=== PATIENT | female | born 1950 | race Caucasian/White ===

== ENCOUNTER 2024-06-19 06:40 | Day surgery (SDC) | payer MEDICARE, SELFPAY ==
[2024-06-16 13:25] VITALS: BMI 41.8
--- NOTE | 2024-06-18 13:23 | EKG_ITS ---
[facility] Test Date: 2024-06-18 Pat Name: EDIS WILDER Department: Room: - Gender: Female [employer]: MERARY : 1950 Requested By: Narayan Mike Order Number: [id number] Reading MD: Narayan Mike Measurements Intervals [place] Rate: 105 P: 5 MD: 163 QRS: 1 QRSD: 97 T: 26 QT: 328 QTc: 435 Interpretive Statements SINUS TACHYCARDIA LOW QRS VOLTAGE IN PRECORDIAL LEADS ABNORMAL RHYTHM ECG Compared to ECG 05/10/2022 11:34:42 Sinus rhythm no longer present Myocardial infarct finding no longer present /store/[id number]
[2024-06-18 15:37] LABS: Basophils # (Auto) 0.1 Thou/mm3 (0.0-0.2); Basophils % (Auto) 1 % (0-2.5); Eosinophils # (Auto) 0.4 Thou/mm3 (0.0-0.5); Eosinophils % (Auto) 3 % (0-10); Hematocrit 43.4 % (36.0-46.0); Immature Granulocytes % (Auto) 0 % (0-0); Immature Granulocytes Auto 0.04 Thou/mm3 (0.00-0.00); Lymphocytes # (Auto) 3.2 Thou/mm3 (1.0-4.8); Lymphocytes % (Auto) 29 % (10-50); Mean Corpuscular HGB Conc 34.6 g/dl (31.0-37.0); Mean Corpuscular Hemoglobin 29.5 pg (25.0-35.0); Mean Corpuscular Volume 85 fL (80-100); Monocytes # (Auto) 0.7 Thou/mm3 (0.0-0.8); Monocytes % (Auto) 6 % (0-12); Neutrophils # (Auto) 6.8 Thou/mm3 (1.8-7.7); Neutrophils % (Auto) 60 % (37-80); Nucleated Red Blood Cell % 0 /100 WBC (0); Platelet Count 274 Thou/mm3 (140-440); RDW Standard Deviation 41.5 fL (36.4-46.3); Red Blood Count 5.09 Miln/mm3 (4.00-5.20); White Blood Count 11.2 Thou/mm3 (3.6-11.0)
[2024-06-19] VITALS (7 sets, daily range): BP systolic 97–135; BP diastolic 57–74; PULSE 70–82; RESP 13–22; TEMP 36.4–36.7; O2SAT 96–97; BMI 41.9
--- NOTE | 2024-06-19 08:12 | SUR.PHASEII ---
0802 patient is sleepy and arousable, breathing unlabored, s/p EGD under MAC anesthesia, report received from Carmella FRANCO and Dr. Allen anesthesia provider.
--- NOTE | 2024-06-19 08:59 | SUR.PHASEII ---
0855 patient is awake, alert, breathing unlabored, able to drink water with no nausea or vomiting, meets discharge criteria, discharge instructions given to patient and , patient discharged home in wheelchair with all belongings.
[2024-06-19 09:27] LABS: Misc Send Out* See Sep Rpt
== END 2024-06-19 08:55 | disposition home or self-care (01) ==
PROVIDERS: Anesthesiology; PCP Internal Medicine; Referring Provider Internal Medicine Gastroenterology; Visit Provider Internal Medicine Gastroenterology
PROC: (CPT 43239; principal; 2024-06-19 07:30)
DX: K29.70 Gastritis, unspecified, without bleeding (principal); K31.7 Polyp of stomach and duodenum; K44.9 Diaphragmatic hernia without obstruction or gangrene
CPT/HCPCS: 43251; 43239; 36415; 85025; 87081; 87205; 93005; A4649

== ENCOUNTER → 2024-06-24 | Outpatient (CLI) | payer MEDICARE, SELFPAY ==
--- NOTE | 2024-06-24 14:10 | XR_ITS ---
Examination: Bone densitometry Date and time of exam:June 24, 2024 1436 hours INDICATIONS: Menopause age 50, personal history osteoporosis, family history mother hip fracture, personal history left femur fracture 7 years ago Technique: Lumbar spine and hip total bone mineralization values of an calculated. Peak reference and age match control results have been displayed. Findings: Lumbar spine total bone mineralization is0.992 gm/cm2. This is 0.5 standard deviations below peak reference. This is 1.8 standard deviations above age-matched controls. Hip total bone mineralization is 0.659 gm/cm2 This is 2.3 standard deviations below peak reference. This is 0.6 standard deviations below age-matched controls Impression: There is normal mineralization based on lumbar spine measurements. There is osteoporosis based on hip measurements Lumbar mineralization is decreased 1.3% compared with October 11, 2021 Hip mineralization is decreased 4.8% compared with October 11, 2021
== END | disposition home or self-care (01) ==
LOC: CDIM 14:18
PROVIDERS: PCP Internal Medicine; Referring Provider Nurse Practitioner Family; Visit Provider Nurse Practitioner Family
DX: M81.0 Age-related osteoporosis without current pathological fracture (principal)
CPT/HCPCS: 77080

== ENCOUNTER → 2024-08-12 | Outpatient (CLI) | payer MEDICARE, SELFPAY ==
--- NOTE | 2024-08-12 09:30 | XR_ITS ---
Examination: CT abdomen with intravenous contrast CT pelvis with intravenous contrast 2-D coronal reconstructions 2-D sagittal reconstructions Date and time of exam:August 12, 2024 at 0945 hours INDICATIONS: Epigastric pain and recurrent urinary tract infections beginning 2 years ago. CTDI: vol (mGy) 45.3 DLP: (mGycm) 1136 Technique: Multiple axial sections of the abdomen and pelvis have been obtained. 64 slice high-resolution scanner used. 3 mm axial sections have been obtained, post intravenous injection 60 cc [id number] 2-D sagittal, coronal reconstructions obtained. Low dose protocols were performed. One or more of the following dose reduction techniques were used; automated exposure control, adjustment of the mA and/or KV according to patient size, use of iterative reconstruction technique. Findings: Suspicious for septal edema at the lung bases Hepatomegaly 23 cm No focal liver or splenic lesions Gallbladder wall does not appear thickened axial image 91 No pancreatic or adrenal mass No renal or ureteral calculi, no hydronephrosis Normal appendix No bowel obstruction No diverticulitis Atrophic uterus No adnexal mass Very abnormal urinary bladder with irregular wall thickening measuring up to 13 mm Severe osteopenia with chronic osteoporotic compression L3, advanced degenerative disc disease L5-S1 IMPRESSION: Suspicious for septal edema at the lung bases, recommend PA lateral chest follow-up Hepatomegaly, 23 cm fatty infiltration Abnormal thickening of the gallbladder wall, recommend hepatobiliary sonography follow-up Very abnormal urinary bladder wall with irregular margins wall thickening measuring up to 13 mm, differential would include severe cystitis, early bladder carcinoma not excluded, recommend urinary bladder sonography follow-up
== END | disposition home or self-care (01) ==
LOC: CCTX 09:17
PROVIDERS: PCP Internal Medicine; Referring Provider Internal Medicine Gastroenterology; Visit Provider Internal Medicine Gastroenterology
DX: K76.0 Fatty (change of) liver, not elsewhere classified (principal); K82.8 Other specified diseases of gallbladder; N32.89 Other specified disorders of bladder
CPT/HCPCS: 74177; A4649; Q9967

== ENCOUNTER → 2024-08-26 | Outpatient (CLI) | payer MEDICARE, SELFPAY ==
--- NOTE | 2024-08-26 12:08 | XR_ITS ---
Examination: Urinary bladder sonography complete TECHNIQUE: Grayscale sonographic images urinary bladder Exam date and time: August 26, 2024 12:16 PM INDICATIONS: Irregular urinary bladder wall thickening up to [address] pelvis August 12, 2024, patient states constant urination 2 years FINDINGS: Mildly thickened bladder wall at this time 0.4 cm Bladder prevoid volume 40 cc postvoid 18 cc No discrete bladder mass or bladder calculi IMPRESSION: Mild current thickening of urinary bladder wall
== END | disposition home or self-care (01) ==
LOC: CDIM 11:58
PROVIDERS: PCP Internal Medicine; Referring Provider Internal Medicine; Visit Provider Internal Medicine
DX: N32.89 Other specified disorders of bladder (principal)
CPT/HCPCS: 76857

== ENCOUNTER → 2024-08-29 | Outpatient (CLI) | payer MEDICARE, SELFPAY ==
--- NOTE | 2024-08-29 | XR_ITS ---
Examination: PA lateral chest 2 views TECHNIQUE: Upright PA lateral chest 2 views Exam date and time: August 29, 2024 1400 hours Comparison January 18, 2018 INDICATIONS: Difficulty breathing beginning 2 weeks ago. FINDINGS: Mild heart failure Mild enlargement cardiac contour Prominent vascular congestion with early septal edema at the lung bases Prominent osteopenia IMPRESSION: Early heart failure
== END | disposition home or self-care (01) ==
PROVIDERS: PCP Internal Medicine; Referring Provider Internal Medicine; Visit Provider Internal Medicine
DX: I50.9 Heart failure, unspecified (principal)
CPT/HCPCS: 71046

== ENCOUNTER → 2024-09-04 | Outpatient (CLI) | payer MEDICARE, SELFPAY ==
--- NOTE | 2024-09-04 12:00 | XR_ITS ---
Examination: Abdomen sonogram, Limited Date and time of exam: September 04, 2024 1222 hours INDICATIONS: Right upper abdominal pain beginning 20 years ago Technique: Real-time coto scale transabdominal sonographic images of the upper abdomen obtained. Findings: Multiple gallstones Gallbladder wall 0.5 cm no edema Common bile duct 1.1 cm Pancreatic head 3.2 cm Liver 17.3 cm fatty infiltration Normal hepatopedal portal venous flow Patent IVC IMPRESSION: Cholelithiasis Thickened gallbladder wall Abnormally enlarged common bile duct, consider MRCP follow-up
== END | disposition home or self-care (01) ==
LOC: CDIM 12:06
PROVIDERS: PCP Internal Medicine; Referring Provider Internal Medicine Gastroenterology; Visit Provider Internal Medicine Gastroenterology
DX: K80.20 Calculus of gallbladder without cholecystitis without obstruction (principal); K82.8 Other specified diseases of gallbladder; K83.8 Other specified diseases of biliary tract
CPT/HCPCS: 76705

== ENCOUNTER → 2024-12-04 | Outpatient (CLI) | payer MEDICARE, SELFPAY ==
--- NOTE | 2024-12-04 12:30 | XR_ITS ---
Examination: HIDA, hepatobiliary radioisotope scan Gallbladder ejection fraction study. Date and time of exam: December 04, 2024 1205 hours INDICATIONS: Abnormal liver function tests, heartburn 4 months Technique: 6.0 mCi of 99M Hepatolite administered. Serial imaging then obtained from immediate through 60 minutes. 2.2 mcg selective catheter Kinevac administered for gallbladder ejection fraction study. Findings: Radioisotope activity within the liver is reasonably homogenous. Gallbladder, common bile duct small bowel activity noted Impression: Gallbladder activity Abnormal gallbladder ejection fraction, 27%, normal greater than 35%
== END | disposition home or self-care (01) ==
LOC: SNUC 12:14
PROVIDERS: PCP Internal Medicine; Referring Provider Internal Medicine Gastroenterology; Visit Provider Internal Medicine Gastroenterology
DX: R94.8 Abnormal results of function studies of other organs and systems (principal)
CPT/HCPCS: 78226; A9537; J2805

== ENCOUNTER → 2024-12-11 | Outpatient (CLI) | payer MEDICARE, SELFPAY ==
--- NOTE | 2024-12-11 12:00 | XR_ITS ---
MRI abdomen, without contrast. MRCP Date and time of exam: December 11, 2024 1214 hours INDICATIONS: Abdominal pain 15 years worse the last 5 months with gallstones and thickened gallbladder wall on hepatobiliary sonography September 04, 2024 Technique: Multiple axial and coronal images of the abdomen have been obtained with the Siemens 1.5T MRI scanner. Images obtained included T1 weighted transverse images, T2-weighted transverse images, T2-weighted transverse images fat-suppressed, T2 weighted haste fat suppressed transverse images, T1 weighted images, in and out of phase images, T2-weighted coronal images, breath hold, T2 weighted haze coronal images as well as T2 weighted coronal thick slab images, MRCP. Findings: Hepatomegaly 22 cm Intrahepatic biliary tract dilatation Multiple gallstones, gallbladder wall is not thickened Enlarged common hepatic duct 12 mm 4 mm 6 mm distal common bile duct stones with probable impacted stone in the distal most common bile duct at least 6 mm No pancreatic mass Splenomegaly 14 cm No ascites No hydronephrosis IMPRESSION: Cholelithiasis, negative for cholecystitis Multiple common bile duct stones with extrahepatic biliary tract dilatation, likely impacted stone in the distal common bile duct
== END | disposition home or self-care (01) ==
LOC: SMRI 11:46
PROVIDERS: PCP Internal Medicine; Referring Provider Internal Medicine Gastroenterology; Visit Provider Internal Medicine Gastroenterology
DX: K80.20 Calculus of gallbladder without cholecystitis without obstruction (principal); K80.50 Calculus of bile duct without cholangitis or cholecystitis without obstruction; K83.8 Other specified diseases of biliary tract
CPT/HCPCS: S8037; 74181

== ENCOUNTER → 2025-04-08 | Outpatient (CLI) | payer MEDICARE, SELFPAY ==
--- NOTE | 2025-04-08 09:00 | XR_ITS ---
Examination: Screening digital mammography, bilateral Computer aided detection 3-D breast Tomosynthesis, bilateral Date and time of exam: April 08, 2025 1014 hours, compared to mammograms dating to October 11, 2021 Indication: Screening Technique: Nonmagnified MLO, CC views of the breasts to been obtained, reconstructed from 3-D Tomosynthesis images. R2 computer aided detection program utilized for evaluation of suspicious masses and/or abnormal calcifications. 3-D Tomosynthesis images obtained. Findings: Scattered areas of fibroglandular density. Benign calcifications. No interval suspicious masses Impression: BI-RADS category II: Benign Findings. Recommend 1 year follow-up mammogram.
== END | disposition home or self-care (01) ==
LOC: CDIM 10:01
PROVIDERS: Referring Provider Student in an Organized Health Care Education/Training Program; Visit Provider Student in an Organized Health Care Education/Training Program
DX: Z12.31 Encounter for screening mammogram for malignant neoplasm of breast (principal); R92.323 Mammographic fibroglandular density, bilateral breasts; R92.1 Mammographic calcification found on diagnostic imaging of breast
CPT/HCPCS: 77063; 77067

== ENCOUNTER → 2025-04-17 | Outpatient (CLI) | payer MEDICARE, SELFPAY ==
[2025-04-17 11:31] LABS: Basophils # (Auto) 0.1 Thou/mm3 (0.0-0.2); Basophils % (Auto) 1 % (0-2.5); Eosinophils # (Auto) 0.3 Thou/mm3 (0.0-0.5); Eosinophils % (Auto) 3 % (0-10); Hematocrit 43.5 % (36.0-46.0); Hemoglobin 14.4 g/dL (12.0-16.0); Immature Granulocytes Auto 0.03 Thou/mm3 (0.00-0.00); Lymphocytes # (Auto) 3.0 Thou/mm3 (1.0-4.8); Lymphocytes % (Auto) 31 % (10-50); Mean Corpuscular HGB Conc 33.1 g/dl (31.0-37.0); Mean Corpuscular Hemoglobin 29.9 pg (25.0-35.0); Mean Corpuscular Volume 90 fL (80-100); Monocytes # (Auto) 0.8 Thou/mm3 (0.0-0.8); Monocytes % (Auto) 8 % (0-12); Neutrophils # (Auto) 5.6 Thou/mm3 (1.8-7.7); Neutrophils % (Auto) 58 % (37-80); Nucleated Red Blood Cell # 0.00 Thou/mm3 (0.00-0.00); Nucleated Red Blood Cell % 0 /100 WBC (0); Platelet Count 257 Thou/mm3 (140-440); RDW Standard Deviation 44.3 fL (36.4-46.3); Red Blood Count 4.82 Miln/mm3 (4.00-5.20); White Blood Count 9.8 Thou/mm3 (3.6-11.0)
[2025-04-17 11:46] LABS: Glucose Estimated Average 151 mg/dL (80-131); Hemoglobin A1C 6.9 % Hgb (4.8-6.0)
[2025-04-17 11:53] LABS: Alanine Aminotransferase 23 U/L (10-49); Albumin, Serum 4.5 gm/dL (3.4-4.8); Albumin/Globulin Ratio 2.3 (1.2-2.2); Alkaline Phosphatase 107 U/L (46-116); Anion Gap 10 (7-16); Aspartate Amino Transferase 25 U/L (0-34); BUN/Creatinine Ratio 14 Ratio (12-20); Bilirubin,Total 0.7 mg/dL (0.3-1.2); Blood Urea Nitrogen 14 mg/dL (9-23); Calcium 9.8 mg/dL (8.3-10.6); Calcium (Corrected) 9.8 mg/dL (8.5-10.1); Carbon Dioxide 27.4 mMol/L (20.0-31.0); Cardiac Risk Estimate 2.9 RATIO (3.7-5.6); Chloride 103 mMol/L (98-107); Cholesterol 114 mg/dL (132-200); Creatinine (Component) 1.0 mg/dL (0.6-1.3); Globulin 2.0 gm/dL (2.3-3.5); Glucose 133 mg/dL (74-106); HDL Cholesterol 40 mg/dL (40-60); LDL Cholesterol,Calculated 49 mg/dL (0-130); Osmolality,Calculated 281 (275-295); Potassium 4.6 mMol/L (3.4-5.1); Sodium 140 mMol/L (136-145); Total Protein 6.5 gm/dL (5.7-8.2); Triglycerides 126 mg/dL (30-150); eGFR 59 See Note
== END | disposition home or self-care (01) ==
LOC: COPL 10:37
PROVIDERS: PCP Student in an Organized Health Care Education/Training Program; Referring Provider Student in an Organized Health Care Education/Training Program; Visit Provider Student in an Organized Health Care Education/Training Program
DX: N30.00 Acute cystitis without hematuria (principal); E11.65 Type 2 diabetes mellitus with hyperglycemia; E78.00 Pure hypercholesterolemia, unspecified
CPT/HCPCS: 36415; 80053; 80061; 83036; 85025

== ENCOUNTER → 2025-06-30 | Outpatient (CLI) | payer MEDICARE, SELFPAY ==
[2025-06-30 11:12] LABS: Basophils # (Auto) 0.1 Thou/mm3 (0.0-0.2); Basophils % (Auto) 1 % (0-2.5); Eosinophils # (Auto) 0.4 Thou/mm3 (0.0-0.5); Eosinophils % (Auto) 4 % (0-10); Hematocrit 43.9 % (36.0-46.0); Hemoglobin 14.5 g/dL (12.0-16.0); Immature Granulocytes Auto 0.04 Thou/mm3 (0.00-0.00); Lymphocytes # (Auto) 2.5 Thou/mm3 (1.0-4.8); Lymphocytes % (Auto) 26 % (10-50); Mean Corpuscular HGB Conc 33.0 g/dl (31.0-37.0); Mean Corpuscular Hemoglobin 29.6 pg (25.0-35.0); Mean Corpuscular Volume 90 fL (80-100); Monocytes # (Auto) 0.7 Thou/mm3 (0.0-0.8); Monocytes % (Auto) 7 % (0-12); Neutrophils # (Auto) 6.0 Thou/mm3 (1.8-7.7); Neutrophils % (Auto) 62 % (37-80); Nucleated Red Blood Cell # 0.00 Thou/mm3 (0.00-0.00); Nucleated Red Blood Cell % 0 /100 WBC (0); Platelet Count 231 Thou/mm3 (140-440); RDW Standard Deviation 43.5 fL (36.4-46.3); Red Blood Count 4.90 Miln/mm3 (4.00-5.20); White Blood Count 9.7 Thou/mm3 (3.6-11.0)
[2025-06-30 11:25] LABS: Glucose Estimated Average 148 mg/dL (80-131); Hemoglobin A1C 6.8 % Hgb (4.8-6.0)
[2025-06-30 11:34] LABS: Creatinine MALB Rnd Ur 85 mg/dL (30-125); Microalbumin Creat Ratio 12 mg/gCrea (<30); Microalbumin, Random Urine 10 mg/L (0-300)
[2025-06-30 12:08] LABS: Alanine Aminotransferase 19 U/L (10-49); Albumin, Serum 5.0 gm/dL (3.4-4.8); Alkaline Phosphatase 126 U/L (46-116); Anion Gap 10 (7-16); Aspartate Amino Transferase 23 U/L (0-34); BUN/Creatinine Ratio 17 Ratio (12-20); Bilirubin,Total 0.7 mg/dL (0.3-1.2); Blood Urea Nitrogen 15 mg/dL (9-23); Calcium 9.5 mg/dL (8.3-10.6); Calcium (Corrected) 9.5 mg/dL (8.5-10.1); Carbon Dioxide 28.2 mMol/L (20.0-31.0); Chloride 101 mMol/L (98-107); Creatinine (Component) 0.9 mg/dL (0.6-1.3); Glucose 121 mg/dL (74-106); Osmolality,Calculated 279 (275-295); Potassium 4.4 mMol/L (3.4-5.1); Sodium 139 mMol/L (136-145); eGFR > 60 See Note
[2025-06-30 13:55] LABS: Albumin/Globulin Ratio 2.4 (1.2-2.2); Cardiac Risk Estimate 2.8 RATIO (3.7-5.6); Cholesterol 125 mg/dL (132-200); Globulin 2.1 gm/dL (2.3-3.5); HDL Cholesterol 44 mg/dL (40-60); LDL Cholesterol,Calculated 50 mg/dL (0-130); Total Protein 7.1 gm/dL (5.7-8.2); Triglycerides 154 mg/dL (30-150)
== END | disposition home or self-care (01) ==
LOC: COPL 10:03
PROVIDERS: PCP Student in an Organized Health Care Education/Training Program; Referring Provider Internal Medicine Endocrinology, Diabetes & Metabolism; Visit Provider Internal Medicine Endocrinology, Diabetes & Metabolism
DX: E11.65 Type 2 diabetes mellitus with hyperglycemia (principal)
CPT/HCPCS: 36415; 80053; 80061; 82043; 82570; 83036; 85025